=== PATIENT | female | born 1995 | race Caucasian/White ===

== ENCOUNTER 2020-01-16 18:30 | Emergency (ER) | payer OTHER ==
[~2020-01-16] VITALS: Ht 162.6 cm; Wt 83.0 kg
[2020-01-16 19:03] VITALS: Ht 162.6 cm; Wt 83.0 kg
[2020-01-16 20:30] VITALS: BP 131/90
== END 2020-01-16 20:43 | disposition home or self-care (01) ==
LOC: ED 18:30
DX: S92.421A Displaced fracture of distal phalanx of right great toe, initial encounter for closed fracture (principal); Z88.8 Allergy status to other drugs, medicaments and biological substances; W21.07XA Struck by softball, initial encounter; Y93.64 Activity, baseball; Y92.89 Other specified places as the place of occurrence of the external cause; Y99.8 Other external cause status
CPT/HCPCS: J1885